=== PATIENT | female | born 1945 | race Asian ===

== ENCOUNTER 2017-03-25 09:21 | Outpatient (CLI) | payer OTHER ==
[~2017-03-25 09:21] MED LIST: AMLO2.5T PO; ASA LO-DOSE81 MG OR; CARV12.5 PO; DIALYVITE PO; DOCU100C10 PO; GABA300C2 PO; ISOS20TA11 PO; LISI5TAB10 PO; METOPROLOL25 M1 PO; NITROSTAT0.4 MG SL; NOVOLOG100 MG/ML SC; PLAVIX75 MG PO; TYLENOL325 MG PO; VITA400C10 PO; ZANTAC300 MG PO
[2017-03-25 10:53] LABS: POTASSIUM 4.4 mmol/L (3.6-5.2)
== END 2017-03-25 21:10 | disposition home or self-care (01) ==
LOC: LABW 09:21
PROVIDERS: Internal Medicine Nephrology
DX: I12.0 Hypertensive chronic kidney disease with stage 5 chronic kidney disease or end stage renal disease (principal); N18.5 Chronic kidney disease, stage 5; E11.9 Type 2 diabetes mellitus without complications; I73.89 Other specified peripheral vascular diseases; K21.9 Gastro-esophageal reflux disease without esophagitis; E78.4 Other hyperlipidemia
CPT/HCPCS: 36415; 80048; 82306; 82570; 82728; 83036; 83540; 83550; 83970; 84100; 84155; 85018

== ENCOUNTER 2017-05-14 11:28 | Outpatient (CLI) | payer OTHER ==
[2017-05-14 12:40] LABS: POTASSIUM 4.5 mmol/L (3.6-5.2)
== END 2017-05-14 12:30 | disposition home or self-care (01) ==
LOC: LABW 11:28
PROVIDERS: Internal Medicine Nephrology
DX: I12.0 Hypertensive chronic kidney disease with stage 5 chronic kidney disease or end stage renal disease (principal); N18.5 Chronic kidney disease, stage 5; E11.9 Type 2 diabetes mellitus without complications; K21.9 Gastro-esophageal reflux disease without esophagitis; E78.4 Other hyperlipidemia; I50.9 Heart failure, unspecified; D63.1 Anemia in chronic kidney disease; N25.81 Secondary hyperparathyroidism of renal origin
CPT/HCPCS: 36415; 80048; 82306; 82728; 83540; 83550; 83970; 84100; 85018

== ENCOUNTER 2017-08-12 22:19 | Outpatient (CLI) | payer OTHER | END 2017-08-12 22:22 | disposition short-term general hospital (02) | LOC: AMB 22:19 | DX: K59.09 Other constipation (principal) | CPT/HCPCS: A0425; A0429 ==

== ENCOUNTER 2017-08-12 22:28 | Emergency (ER) | payer OTHER ==
[~2017-08-12] VITALS: Ht 175.3 cm; Wt 99.8 kg
[2017-08-12 23:33] LABS: PLATELET COUNT 154 K/uL (152-353)
[2017-08-13 00:07] LABS: POTASSIUM 3.6 mmol/L (3.6-5.2)
[2017-08-13 00:11] LABS: PARTIAL THROMBOPLASTIN TIME 25.7 SECONDS (24.5-33.6)
[2017-08-13 01:22] VITALS: BP 140/61; TEMP 98.9
== END 2017-08-13 01:30 | disposition short-term general hospital (02) ==
LOC: ED 22:28
DX: R07.89 Other chest pain (principal); K59.09 Other constipation; E11.9 Type 2 diabetes mellitus without complications; I24.9 Acute ischemic heart disease, unspecified; I45.19 Other right bundle-branch block; I50.9 Heart failure, unspecified
CPT/HCPCS: 80053; 82550; 82553; 83880; 84484; 85027; 85610; 85730; 93005; 99284; J2405

== ENCOUNTER 2017-08-13 01:39 | Outpatient (CLI) | payer OTHER | END 2017-08-13 02:13 | disposition short-term general hospital (02) | LOC: AMB 01:39 | DX: R10.84 Generalized abdominal pain (principal) | CPT/HCPCS: A0425; A0427 ==

== ENCOUNTER 2017-08-25 00:03 | Outpatient (CLI) | payer OTHER | END 2017-08-25 00:06 | disposition short-term general hospital (02) | LOC: AMB 00:03 | DX: R42 Dizziness and giddiness (principal) | CPT/HCPCS: A0425; A0429 ==

== ENCOUNTER 2017-08-25 00:16 | Emergency (ER) | payer OTHER ==
[~2017-08-25] VITALS: Ht 175.3 cm; Wt 97.5 kg
[2017-08-25 01:44] LABS: PLATELET COUNT 190 K/uL (152-353)
[2017-08-25 02:09] VITALS: BP 123/46; TEMP 98.5
== END 2017-08-25 02:15 | disposition home or self-care (01) ==
LOC: ED 00:16
DX: L29.8 Other pruritus (principal); D64.89 Other specified anemias; N18.6 End stage renal disease
CPT/HCPCS: 36415; 85027; 96372; 99283; J1100; J1200

== ENCOUNTER 2018-03-02 09:03 | Outpatient (CLI) | payer OTHER | END 2018-03-02 09:04 | disposition short-term general hospital (02) | LOC: AMB 09:03 | DX: R40.4 Transient alteration of awareness (principal); Z99.2 Dependence on renal dialysis | CPT/HCPCS: A0425; A0429 ==

== ENCOUNTER 2018-03-02 09:06 | Observation (INO) | payer OTHER ==
[~2018-03-02] VITALS: Ht 175.3 cm; Wt 94.6 kg
[2018-03-02 09:06] VITALS: BP 187/71; TEMP 96.8
[2018-03-02 09:54] LABS: PLATELET COUNT 134 K/uL (152-353)
[2018-03-02 10:06] LABS: POTASSIUM 3.1 mmol/L (3.6-5.2)
[2018-03-02 10:09] LABS: PARTIAL THROMBOPLASTIN TIME 29.3 SECONDS (24.5-33.6)
[2018-03-02 21:03] VITALS: BP 98/65; TEMP 97.8; Ht 175.3 cm; Wt 94.6 kg
[2018-03-03 00:21] VITALS: BP 144/45; TEMP 98.4
[2018-03-03 01:41] LABS: PLATELET COUNT 141 K/uL (152-353)
[2018-03-03 01:56] LABS: POTASSIUM 3.8 mmol/L (3.6-5.2)
== END 2018-03-03 15:45 | disposition home or self-care (01) ==
LOC: ED 09:06 → MED/SURG 12:55
PROVIDERS: ADMIT Family Medicine
DX: R55 Syncope and collapse (principal); N18.6 End stage renal disease; I12.0 Hypertensive chronic kidney disease with stage 5 chronic kidney disease or end stage renal disease; E11.22 Type 2 diabetes mellitus with diabetic chronic kidney disease; Z99.2 Dependence on renal dialysis
CPT/HCPCS: 36415; 80053; 82550; 82553; 84484; 85027; 85379; 85610; 85730; 93005; 99220; 99283; G0378

== ENCOUNTER 2018-03-04 11:55 | Outpatient (CLI) | payer OTHER | END 2018-03-04 11:56 | disposition short-term general hospital (02) | LOC: AMB 11:55 | DX: R07.89 Other chest pain (principal); Z99.2 Dependence on renal dialysis | CPT/HCPCS: A0425; A0427 ==

== ENCOUNTER 2018-03-04 17:04 | Outpatient (CLI) | payer OTHER | END 2018-03-04 17:35 | disposition short-term general hospital (02) | LOC: AMB 17:04 | DX: I21.9 Acute myocardial infarction, unspecified (principal); R79.89 Other specified abnormal findings of blood chemistry | CPT/HCPCS: A0425; A0427 ==

== ENCOUNTER 2019-06-11 17:11 | Outpatient (CLI) | payer OTHER | END 2019-06-11 17:14 | disposition short-term general hospital (02) | LOC: AMB 17:11 | DX: R06.02 Shortness of breath (principal); R05 Cough | CPT/HCPCS: A0425; A0427 ==

== ENCOUNTER 2019-06-11 17:16 | Emergency (ER) | payer OTHER ==
[~2019-06-11] VITALS: Ht 175.3 cm; Wt 100.7 kg
[2019-06-11 18:20] LABS: PLATELET COUNT 128 K/uL (152-353)
[2019-06-11 18:35] LABS: POTASSIUM 4.8 mmol/L (3.6-5.2)
[2019-06-11 22:06] VITALS: BP 183/63; TEMP 97.3
== END 2019-06-11 22:10 | disposition home or self-care (01) ==
LOC: ED 17:20
PROVIDERS: Emergency Medicine
DX: J44.9 Chronic obstructive pulmonary disease, unspecified (principal); N18.6 End stage renal disease; Z99.2 Dependence on renal dialysis; I44.7 Left bundle-branch block, unspecified
CPT/HCPCS: 80053; 83880; 85027; 87502; 93005; 94664; 96374; 99284; J1940

== ENCOUNTER 2020-06-17 00:33 | Emergency (ER) | payer OTHER ==
[~2020-06-17] VITALS: Ht 175.3 cm; Wt 95.3 kg
[2020-06-17 01:04] LABS: PLATELET COUNT 169 K/uL (152-353)
[2020-06-17 01:20] LABS: POTASSIUM 6.5 mmol/L (3.6-5.2)
[2020-06-17 02:06] LABS: POTASSIUM 5.7 mmol/L (3.6-5.2)
[2020-06-17 02:12] VITALS: BP 176/72; TEMP 98.6
== END 2020-06-17 02:30 | disposition home or self-care (01) ==
LOC: ED 00:33
PROVIDERS: Family Medicine
DX: E11.65 Type 2 diabetes mellitus with hyperglycemia (principal); Z79.4 Long term (current) use of insulin
CPT/HCPCS: 80048; 80053; 82948; 85027; 96360; 96374; 99284; J1815

== ENCOUNTER 2021-09-17 14:27 | Emergency (ER) | payer OTHER ==
[~2021-09-17] VITALS: Ht 175.3 cm; Wt 95.3 kg
[2021-09-17 15:02] LABS: PLATELET COUNT 74 K/uL (152-353)
== END 2021-09-17 17:55 | disposition short-term general hospital (02) ==
LOC: ED 14:30
PROVIDERS: Emergency Medicine Emergency Medical Services
PROC: 0BH17EZ Insertion of Endotracheal Airway into Trachea, Via Natural or Artificial Opening (ICD-10-PCS; principal; 2021-09-17)
PROC: 5A1935Z Respiratory Ventilation, Less than 24 Consecutive Hours (ICD-10-PCS; 2021-09-17)
PROC: 5A12012 Performance of Cardiac Output, Single, Manual (ICD-10-PCS; 2021-09-17)
PROC: 30233N1 Transfusion of Nonautologous Red Blood Cells into Peripheral Vein, Percutaneous Approach (ICD-10-PCS; 2021-09-17)
DX: I46.9 Cardiac arrest, cause unspecified (principal); I21.4 Non-ST elevation (NSTEMI) myocardial infarction; I10 Essential (primary) hypertension; I25.2 Old myocardial infarction
CPT/HCPCS: 31500; 36415; 36430; 36600; 80053; 82805; 82948; 83735; 83880; 84484; 85027; 85610; 86850; 86900; 86901; 86922; 92950; 93005; 94002; 94003; 96365; 96366; 96368; 96375; 96376; 99285; J0171; J0282; J3490; P9016